=== PATIENT | female | born 1970 | race Caucasian/White ===

== ENCOUNTER 2017-06-06 20:16 | Emergency (ER) | payer BC ==
[2017-06-06 20:31] VITALS: RESP 18; TEMP 98.2; O2SAT 100
[2017-06-06 21:43] VITALS: BP 140/70; PULSE 92
== END 2017-06-06 21:35 | disposition home or self-care (01) ==
LOC: ED 20:16
DX: S93.602A Unspecified sprain of left foot, initial encounter (principal); X50.1XXA Overexertion from prolonged static or awkward postures, initial encounter
CPT/HCPCS: 73630; 99282; 99283